=== PATIENT | female | born 1955 | race Two or more races ===

== ENCOUNTER → 2020-11-06 | Day surgery (SDC) | payer MEDICARE, OTHER | END | disposition home or self-care (01) | LOC: JRADIR 09:13 | PROVIDERS: ATTEND Internal Medicine Endocrinology, Diabetes & Metabolism | PROC: 0G9K3ZX Drainage of Thyroid Gland, Percutaneous Approach, Diagnostic (ICD-10-PCS; principal; 2020-11-06) | DX: E04.1 Nontoxic single thyroid nodule (principal) | CPT/HCPCS: 10005; 76942; 88173; 88305-TC ==

== ENCOUNTER 2021-10-01 10:00 | Day surgery (SDC) | payer MEDICARE, OTHER ==
[2021-09-30 13:37] VITALS: BMI 31.4
[2021-10-01 11:16] VITALS: TEMP 97
[2021-10-01 13:22] VITALS: BP 132/75; PULSE 75
== END 2021-10-01 13:22 | disposition home or self-care (01) ==
LOC: FASU-ENDO 10:00
PROVIDERS: ATTEND Internal Medicine Gastroenterology
PROC: 0DJD8ZZ Inspection of Lower Intestinal Tract, Via Natural or Artificial Opening Endoscopic (ICD-10-PCS; principal; 2021-10-01 12:23)
DX: Z86.010 Personal history of colon polyps (principal); K64.0 First degree hemorrhoids
CPT/HCPCS: 82962

== ENCOUNTER 2021-12-10 10:30 | Day surgery (SDC) | payer MEDICARE, OTHER ==
[2021-12-03 16:08] VITALS: BMI 31.4
[2021-12-10 13:23] VITALS: PULSE 78
[2021-12-10 13:24] VITALS: BP 148/80; TEMP 97.8
== END 2021-12-10 13:25 | disposition home or self-care (01) ==
LOC: FASU 10:30 → FASU-ENDO 10:30 → FASU 13:25
PROVIDERS: ATTEND Internal Medicine Gastroenterology
PROC: 0DJD8ZZ Inspection of Lower Intestinal Tract, Via Natural or Artificial Opening Endoscopic (ICD-10-PCS; principal; 2021-12-10 12:16)
DX: Z12.11 Encounter for screening for malignant neoplasm of colon (principal); Z86.010 Personal history of colon polyps; K64.1 Second degree hemorrhoids; K57.30 Diverticulosis of large intestine without perforation or abscess without bleeding
CPT/HCPCS: 82962

== ENCOUNTER → 2022-07-22 | Day surgery (SDC) | payer MEDICARE, OTHER | END | disposition home or self-care (01) | LOC: JRADIR 09:33 | PROVIDERS: ATTEND Internal Medicine Endocrinology, Diabetes & Metabolism | PROC: 0GBH3ZX Excision of Right Thyroid Gland Lobe, Percutaneous Approach, Diagnostic (ICD-10-PCS; principal; 2022-07-22) | DX: E04.1 Nontoxic single thyroid nodule (principal) | CPT/HCPCS: 10005; 76942; 88173; 88305-TC ==